=== PATIENT | female | born 1990 | race Caucasian/White ===

== ENCOUNTER 2025-03-28 10:18 | Emergency (ER) | payer BC ==
[~2025-03-28] VITALS: Ht 154.9 cm; Wt 60.3 kg
[2025-03-28 11:39] LABS: PREGNANCY TEST URINE QUAL NEGATIVE (NEGATIVE)
[2025-03-28 11:40] LABS: PLATELET COUNT (AUTO) 224 K/uL (150-450); RED BLOOD CELL COUNT(AUTO) 4.99 MIL/uL (4.0-5.2); RED CELL DISTRIBUTION WIDTH 12.9 % (11.5-15.0); WHITE BLOOD COUNT (AUTO) 5.5 K/uL (4.3-11.0)
[2025-03-28 11:54] LABS: CALCIUM, SERUM 9.4 mg/dL (8.5-10.1); CREATININE 0.7 mg/dL (0.6-1.3); SODIUM SERUM 139 mmol/L (136-145); UREA NITROGEN, BLOOD 10 mg/dL (7-18)
[2025-03-28] MEDS: METOCLOPRAMIDE HCL 10 MG/2 ML VIAL IV ONE (13:30)
[2025-03-28 16:24] VITALS: BP 119/71; TEMP 98.3; O2SAT 99
== END 2025-03-28 16:34 | disposition home or self-care (01) ==
LOC: ER 10:39
DX: R20.2 Paresthesia of skin (principal); R94.31 Abnormal electrocardiogram [ECG] [EKG]; E80.4 Gilbert syndrome
CPT/HCPCS: 36415; 70551-TC; 80048-TC; 84484-TC; 84703-TC; 85025-TC